=== PATIENT | male | born 2000 | race Caucasian/White ===

== ENCOUNTER 2019-05-30 16:10 | Emergency (ER) | payer OTHER ==
[2019-05-30 17:14] LABS: Absolute Lymphocytes (CBC) 2.3 K/uL (0.7-4.9); Basophils % 0.7 % (0-1.3); Hematocrit 45.8 % (39.6-49.0); Lymphocytes % 28.9 % (15.3-44.8); MPV 7.7 fL (7.6-11.3); RBC Red Blood Cell Count 5.15 M/uL (4.33-5.43)
[2019-05-30 17:29] LABS: Albumin 4.6 g/dL (3.4-5.0); Bilirubin Total 0.3 mg/dL (0.2-1.0); Potassium 3.7 mmol/L (3.5-5.1); Protein, Total 7.8 g/dL (6.4-8.2)
--- NOTE | 2019-05-30 18:35 | RAD REPORT ---
EXAM DESCRIPTION: CT - Wrist Left W Con - 05/30/2019 6:15 pm CLINICAL HISTORY: box truck washer injury Trauma, pain and swelling. COMPARISON: None FINDINGS: CT wrist and hand with contrast was submitted Soft tissue swelling is present along the dorsum of the wrist. No acute fracture or dislocation is ev ident. No aggressive marrow pattern. Normal enhancement is seen in both the radial and ulnar arteries. No evidence of vascular compromise is present. No fascial or soft tissue air seen. IMPRESSION: No acute process seen.
--- NOTE | 2019-05-30 18:47 | ER ---
Nurse's Notes [facility] Name: Cristopher Rg Age: 19 yrs Sex: Male : 2000 Arrival Date: 05/30/2019 Time: 16:11 Bed 25 Private MD: Diagnosis: Left Hand Puncture Presentation: 05/30 16:23 Presenting complaint: Patient states: I was using a yarn washer and sprayed my left la1 hand by accident. Transition of care: patient was not received from another setting of care. Onset of symptoms was May 30, 2019. Risk Assessment: Do you want to hurt yourself or someone else? Patient reports no desire to harm self or others. Initial Sepsis Screen: Does the patient meet any 2 criteria? No. Patient's initial sepsis screen is negative. Does the patient have a suspected source of infection? No. Patient's initial sepsis screen is negative. Care prior to arrival: None. 16:23 Method Of Arrival: Ambulatory la1 16:23 Acuity: JARRED 3 la1 Historical: - Allergies: 16:24 No Known Allergies; la1 - PMHx: 16:24 None; la1 - Immunization history:: Adult Immunizations up to date. - Social history:: Smoking status: Patient uses tobacco products, smokes one-half pack cigarettes per day. - Ebola Screening: : No symptoms or risks identified at this time. Screenin:30 Abuse screen: Denies injuries from another. Nutritional screening: No deficits noted. la1 Tuberculosis screening: No symptoms or risk factors identified. Fall Risk None identified. Assessment: 16:29 General: Appears in no apparent distress. Behavior is calm, cooperative. Pain: la1 Complains of pain in left hand. Neuro: Level of Consciousness is awake, alert, obeys commands. Cardiovascular: Capillary refill < 3 seconds is brisk in bilateral fingers Patient's skin is warm and dry. Respiratory: Airway is patent Respiratory effort is even, unlabored, Respiratory pattern is regular, symmetrical. GI: No signs and/or symptoms were reported involving the gastrointestinal system. : No signs and/or symptoms were reported regarding the genitourinary system. Musculoskeletal: Circulation, motion, and sensation intact. Capillary refill < 3 seconds, is brisk, in bilateral fingers. Range of motion: intact in all extremities. Injury Description: abrasion appearing wound to left hand. 17:56 Reassessment: Patient appears in no apparent distress at this time. Patient and/or ph family updated on plan of care and expected duration. Pain level reassessed. Patient is alert, oriented x 3, equal unlabored respirations, skin warm/dry/pink. Pt resting quietly, awaiting CT scan. 19:00 Reassessment: Patient appears in no apparent distress at this time. Patient and/or ph family updated on plan of care and expected duration. Pain level reassessed. Patient is alert, oriented x 3, equal unlabored respirations, skin warm/dry/pink. Pt d/c home w/ prescriptions for antibiotics. Vital Signs: 16:24 BP 150 / 90; Pulse 65; Resp 16; Temp 97.8; Pulse Ox 98% on R/A; Weight 58.51 kg; Height la1 5 ft. 10 in. (177.80 cm); 17:30 BP 137 / 84; Pulse 67; Resp 18; Pulse Ox 99% on R/A; ph 18:36 BP 130 / 78; Pulse 65; Resp 16; Temp 97.9; Pulse Ox 100% on R/A; ph 16:24 Body Mass Index 18.51 (58.51 kg, 177.80 cm) la1 ED Course: 16:11 Patient arrived in ED. as 16:24 Triage completed. la1 16:24 Ector Merritt PA is PHCP. [facility] 16:24 Nadeem Whatley MD is Attending Physician. jm 16:24 Arm band placed on left wrist. la1 16:29 Linus Mcfarland, RN is Primary Nurse. la1 16:30 Patient has correct armband on for positive identification. la1 17:06 Initial lab(s) drawn, by me. Inserted saline lock: 20 gauge in left antecubital area, iw using aseptic technique. Blood collected. 18:13 Hand Left W Con In Process Unspecified. EDMS 18:13 Wrist Left W Con In Process Unspecified. EDMS 18:44 Gael Anand MD is Referral Physician. [facility] 19:00 No provider procedures requiring assistance completed. IV discontinued, intact, ph bleeding controlled, No redness/swelling at site. Pressure dressing applied. Administered Medications: No medications were administered Outcome: 18:45 Discharge ordered by . jmm 19:02 Patient left the ED. ph 19:02 Discharged to home ambulatory. ph 19:02 Condition: good 19:02 Discharge instructions given to patient, Instructed on discharge instructions, follow up and referral plans. medication usage, Demonstrated understanding of instructions, follow-up care, medications, Prescriptions given X 2. Signatures: Dispatcher [employer] EDMS Ector Merritt PA PA jmm Martinez, Amelia as Williams, Irene, RN RN iw Linus Mcfarland RN RN la1 Alyce Hearn RN RN ph Corrections: (The following items were deleted from the chart) 16:47 16:23 Acuity: JARRED 4 la1 la1
--- NOTE | 2019-05-30 18:47 | EDPHYS ---
Physician Documentation [facility] Name: Cristopher Rg Age: 19 yrs Sex: Male : 2000 Arrival Date: 05/30/2019 Time: 16:11 Bed 25 Private MD: ED Physician Nadeem Whatley HPI: 05/30 16:42 This 19 yrs old Male presents to ER via Ambulatory with complaints of Hand jmm Injury. 16:42 The patient or guardian reports injury. Onset: The symptoms/episode began/occurred jmm acutely, just prior to arrival. Modifying factors: The symptoms are alleviated by nothing, the symptoms are aggravated by nothing. This is a 19 year old male with no chronic medical conditions that presents to the ED with complaints of left hand injury. Patient inadvertently sprayed himself was a washer off just prior to arrival while cleaning himself. Patient is UTD on tetanus immunizations. . Historical: - Allergies: 16:24 No Known Allergies; la1 - PMHx: 16:24 None; la1 - Immunization history:: Adult Immunizations up to date. - Social history:: Smoking status: Patient uses tobacco products, smokes one-half pack cigarettes per day. - Ebola Screening: : No symptoms or risks identified at this time. ROS: 16:42 Constitutional: Negative for fever, chills, and weight loss, Cardiovascular: Negative jmm for chest pain, palpitations, and edema, Respiratory: Negative for shortness of breath, cough, wheezing, and pleuritic chest pain. 16:42 MS/extremity: Positive for injury or acute deformity. 16:42 All other systems are negative. Exam: 16:42 Constitutional: This is a well developed, well nourished patient who is awake, alert, jmm and in no acute distress. Head/Face: atraumatic. Eyes: EOMI, no conjunctival erythema appreciated ENT: Moist Mucus Membranes Neck: Trachea midline, Supple Chest/axilla: Normal chest wall appearance and motion. Cardiovascular: Regular rate and rhythm. No edema appreciated Respiratory: Normal respirations, no respiratory distress appreciated Abdomen/GI: Non distended, soft Back: Normal ROM 16:42 Skin: superficial laceration noted to the left hand at the dorsal surface at the 2nd and 3rd metacarpal region. . 16:42 Neuro: Orientation: is normal, Mentation: is normal, Memory: is normal. 16:42 Psych: Behavior/mood is pleasant, cooperative. Vital Signs: 16:24 BP 150 / 90; Pulse 65; Resp 16; Temp 97.8; Pulse Ox 98% on R/A; Weight 58.51 kg; Height la1 5 ft. 10 in. (177.80 cm); 17:30 BP 137 / 84; Pulse 67; Resp 18; Pulse Ox 99% on R/A; ph 18:36 BP 130 / 78; Pulse 65; Resp 16; Temp 97.9; Pulse Ox 100% on R/A; ph 16:24 Body Mass Index 18.51 (58.51 kg, 177.80 cm) la1 MDM: 16:42 Patient medically screened. [facility] 18:40 Data reviewed: vital signs, nurses notes. Counseling: I had a detailed discussion with raghav the patient and/or guardian regarding: the historical points, exam findings, and any diagnostic results supporting the discharge/admit diagnosis, lab results, radiology results, the need for outpatient follow up, to return to the emergency department if symptoms worsen or persist or if there are any questions or concerns that arise at home. ED course: PE exam reveals no crepitus or diffuse pain to the left hand. CT imaging with contrast reveals no signs of of fascial injury. Patient will be covered with oral abx and advised to closely follow up with hand surgery. Patient otherwise given strict return precautions. . 08 16:46 Order name: CBC with Diff; Complete Time: 17:31 [facility] 05/30 16:46 Order name: CMP; Complete Time: 17:31 [facility] 05/30 16:46 Order name: Saline Lock; Complete Time: 17:06 [facility] 05/30 17:10 Order name: Hand Left W Con EDMS 05/30 17:10 Order name: Wrist Left W Con; Complete Time: 18:40 EDVT Administered Medications: No medications were administered Disposition: 19:08 Co-signature as Attending Physician, Nadeem Whatley MD. rn Disposition: 05/30/19 18:45 Discharged to Home. Impression: Left Hand Puncture. - Condition is Stable. - Discharge Instructions: Nonsutured Laceration Care. - Prescriptions for Cephalexin 500 mg Oral Capsule - take 1 capsule by ORAL route every 6 hours for 10 days; 40 capsule. Bactrim DS 800- 160 mg Oral Tablet - take 1 tablet by ORAL route every 12 hours for 10 days; 20 tablet. - Medication Reconciliation Form, Thank You Letter, Antibiotic Education, Prescription Opioid Use form. - Follow up: Gael Anand MD; When: 2 - 3 days; Reason: Recheck today's complaints, Continuance of care, Re-evaluation by your physician. Signatures: Dispatcher [employer] [facility] Ector Merritt PA PA [facility] Nadeem Whatley MD MD rn Attema, Lee, RN RN la1 Alyce Hearn RN RN ph Corrections: (The following items were deleted from the chart) 16:50 16:40 Hand Left 3 View+RAD.RAD.BRZ ordered. [facility] 19:02 18:45 05/30/2019 18:45 Discharged to Home. Impression: Left Hand Puncture. Condition is ph Stable. Forms are Medication Reconciliation Form, Thank You Letter, Antibiotic Education, Prescription Opioid Use. Follow up: Gael Anand; When: 2 - 3 days; Reason: Recheck today's complaints, Continuance of care, Re-evaluation by your physician. raghav
[2019-05-30] MEDS ORDERED: CLINDAMYCIN HCL 150 MG CAP ONE (20:39)
--- NOTE | 2019-06-02 10:31 | RAD REPORT ---
EXAM DESCRIPTION: CT - Hand Left W Con - 05/30/2019 6:12 pm CLINICAL HISTORY: brown stock washer injury Trauma, pain and swelling. COMPARISON: None FINDINGS: CT wrist and hand with contrast was submitted Soft tissue swelling is present along the dorsum of the wrist. No acute fracture or dislocation is ev ident. No aggressive marrow pattern. Normal enhancement is seen in both the radial and ulnar arteries. No evidence of vascular compromise is present. No fascial or soft tissue air seen. IMPRESSION: No acute process seen.
== END 2019-05-30 19:02 | disposition home or self-care (01) ==
LOC: ER 16:10
DX: S61.432A Puncture wound without foreign body of left hand, initial encounter (principal); W31.89XA Contact with other specified machinery, initial encounter; Y93.89 Activity, other specified; Y92.9 Unspecified place or not applicable; F17.210 Nicotine dependence, cigarettes, uncomplicated
CPT/HCPCS: 36415; 73201; 80053; 85025; 99284